=== PATIENT | male | born 1965 | race Caucasian/White ===

== ENCOUNTER 2017-01-06 08:14 | Emergency (ER) | payer OTHER ==
[~2017-01-06] VITALS: Ht 167.6 cm; Wt 92.5 kg
[2017-01-06 08:28] VITALS: BP 142/87
--- NOTE | 2017-01-06 08:28 | NUR ---
PT AMBULATED TO BED 8.
--- NOTE | 2017-01-06 08:30 | NUR ---
Note undone in EDM - 01/06/17 at 0853 by MED1 51/M BIB SELF FOR RIGHT SIDED FLANK PAIN & R BACK PAIN RADIATING TO RIGHT LEG X 1 WK. DENIES N/V/D; SKIN IS PINK/WARM/DRY; AAOX4 WITH EVEN AND UNSTEADY GAIT; LUNGS CLEAR BL; HR EVEN AND REGULAR; PT DENIES ANY FEVER, CP, SOB, OR COUGH AT THIS TIME; PATIENT STATES PAIN OF 10/10 AT THIS TIME; VSS; PATIENT POSITIONED FOR COMFORT; HOB ELEVATED; BEDRAILS UP X2; BED DOWN. ER MADE AWARE OF PT STATUS.
--- NOTE | 2017-01-06 08:30 | NUR ---
Note undone in EDM - 01/06/17 at 0837 by MED1 51/M BIB SELF FOR RIGHT SIDED FLANK PAIN RADIATING TO RIGHT LEG X 1 WK. DENIES N/V/D; SKIN IS PINK/WARM/DRY; AAOX4 WITH EVEN AND UNSTEADY GAIT; LUNGS CLEAR BL; HR EVEN AND REGULAR; PT DENIES ANY FEVER, CP, SOB, OR COUGH AT THIS TIME; PATIENT STATES PAIN OF 10/10 AT THIS TIME; VSS; PATIENT POSITIONED FOR COMFORT; HOB ELEVATED; BEDRAILS UP X2; BED DOWN. ER MADE AWARE OF PT STATUS.
--- NOTE | 2017-01-06 08:30 | NUR ---
51/M BIB FOR RIGHT SIDED FLANK PAIN & R BACK PAIN RADIATING TO RIGHT LEG X 1 WK. DENIES N/V/D; SKIN IS PINK/WARM/DRY; AAOX4 WITH EVEN AND UNSTEADY GAIT; LUNGS CLEAR BL; HR EVEN AND REGULAR; PT DENIES ANY FEVER, CP, SOB, OR COUGH AT THIS TIME; PATIENT STATES PAIN OF 10/10 AT THIS TIME; VSS; PATIENT POSITIONED FOR COMFORT; HOB ELEVATED; BEDRAILS UP X2; BED DOWN. ER MD MADE AWARE OF PT STATUS.
[2017-01-06] MEDS ORDERED: CODEINE (08:31)
[2017-01-06] MEDS ORDERED: APAP (08:31)
[2017-01-06] MEDS ORDERED: NAPROXEN 500 MG (08:31)
--- NOTE | 2017-01-06 08:33 | NUR ---
ER MD DR. VAUGHN EVALUATING PT AT BEDSIDE.
[2017-01-06] MEDS ORDERED: ONDANSETRON 4 MG ODT PO ONE (08:45)
[2017-01-06] MEDS ORDERED: MORPHINE SULFATE 10 MG/ML SYR IM ONE (08:45)
--- NOTE | 2017-01-06 10:02 | NUR ---
Patient being reevaluated by DR VAUGHN at bedside.
[2017-01-06] MEDS ORDERED: MORPHINE SULFATE 4 MG/ML SYR IM ONE (10:05)
--- NOTE | 2017-01-06 10:11 | NUR ---
at bedside. Patient appears to be resting comfortably in bed. Vital Signs within normal limits. Respirations even and unlabored.will continue to monitor.
[2017-01-06 10:45] VITALS: BP 123/88
== END 2017-01-06 10:45 | disposition home or self-care (01) ==
LOC: MED 08:14
DX: M54.40 Lumbago with sciatica, unspecified side (principal); R03.0 Elevated blood-pressure reading, without diagnosis of hypertension; Z79.899 Other long term (current) drug therapy
CPT/HCPCS: 81002; 96372; 99284; J2270; S0119

== ENCOUNTER 2022-09-30 16:26 | Emergency (ER) | payer OTHER ==
[~2022-09-30] VITALS: Ht 167.6 cm; Wt 90.7 kg
[~2022-09-30 16:26] MED LIST: APAP; CODEINE; NAPROXEN 500 MG
[2022-09-30 16:45] VITALS: BP 147/84; PULSE 72; RESP 18; TEMP 98.6; O2SAT 98
[2022-09-30 18:00] LABS: BASOPHILS % (AUTO) 0.2 % (0.0-2.0); EOSINOPHILS % (AUTO) 0.1 % (0.0-4.0); HEMATOCRIT 45.5 % (36-52); HEMOGLOBIN 15.3 g/dL (12.0-18.0); LYMPHOCYTES # (AUTO) 0.5 K/uL (2.0-11.5); LYMPHOCYTES % (AUTO) 5.9 % (20.5-51.1); MEAN CORPUSCULAR HEMOGLOBIN 31 pg (27-31); MEAN CORPUSCULAR HGB CONC 34 g/dL (33-37); MEAN CORPUSCULAR VOLUME 92.3 fL (80-94); MONOCYTES # (AUTO) 0.1 K/uL (0.8-1.0); MONOCYTES % (AUTO) 0.6 % (1.7-9.3); NEUTROPHILS # (AUTO) 7.6 K/uL (1.8-7.7); NEUTROPHILS % (AUTO) 93.2 % (42.2-75.2); PLATELET COUNT (AUTO) 248 K/uL (140-450); RED BLOOD CELL COUNT(AUTO) 4.93 MIL/uL (4.20-6.10); RED CELL DISTRIBUTION WIDTH 13.4 % (11.6-13.7); WHITE BLOOD COUNT (AUTO) 8.1 K/uL (4.8-10.8)
[2022-09-30 18:11] LABS: ANION GAP 13.1 (8-16); CREATININE 1.2 mg/dL (0.6-1.3); POTASSIUM 4.1 mmol/L (3.5-5.1)
[2022-09-30 19:10] LABS: BILIRUBIN,URINE NEGATIVE (NEGATIVE); BLOOD, URINE NEGATIVE (NEGATIVE); LEUKOCYTE ESTERASE ,URINE TRACE (NEGATIVE); NITRITE, URINE NEGATIVE (NEGATIVE); UGLUCOSE NEGATIVE (NEGATIVE)
[2022-09-30 19:11] LABS: APPEARANCE,URINE HAZY (CLEAR); COLOR,URINE YELLOW (YELLOW)
[2022-09-30 20:04] LABS: RBC,URINE NONE SEEN /HPF (0-5)
--- NOTE | 2022-09-30 20:20 | NUR ---
PATIENT ELOPED FROM FACILITY. DISCHARGE INSTRUCTIONS NOT GIVEN TO PATIENT. DR. DUPREE NOTIFIED.
== END 2022-09-30 20:20 | disposition left against medical advice (07) ==
LOC: MED 16:26
DX: N39.0 Urinary tract infection, site not specified (principal); Z79.899 Other long term (current) drug therapy
CPT/HCPCS: 36415; 80048; 81001; 85025; 99283